=== PATIENT | female | born 1990 | race Caucasian/White ===

== ENCOUNTER 2025-05-22 07:29 | Emergency (ER) | payer BC ==
[~2025-05-22] VITALS: Ht 165.1 cm; Wt 136.4 kg
[2025-05-22 07:41] VITALS: TEMP 97.9
[2025-05-22] MEDS ORDERED: METH-659 PO (08:26)
[2025-05-22] MEDS ORDERED: IBUP-1492 PO (08:26)
[2025-05-22] MEDS: IBUPROFEN 600 MG TABLET PO ONE (08:33)
[2025-05-22 08:37] VITALS: BP 139/87; PULSE 85; RESP 18; O2SAT 98
== END 2025-05-22 08:41 | disposition home or self-care (01) ==
LOC: EMS 07:31
DX: S60.011A Contusion of right thumb without damage to nail, initial encounter (principal); M54.2 Cervicalgia; M25.531 Pain in right wrist; Z88.6 Allergy status to analgesic agent; V43.52XA Car driver injured in collision with other type car in traffic accident, initial encounter; Y93.89 Activity, other specified; Y92.410 Unspecified street and highway as the place of occurrence of the external cause; Y99.8 Other external cause status
CPT/HCPCS: 99283